=== PATIENT | female | born 1985 | race Caucasian/White ===

== ENCOUNTER 2016-11-11 05:29 | Inpatient (IN) | payer OTHER ==
[~2016-11-11] VITALS: Ht 160 cm; Wt 62.1 kg
[2016-11-11 06:36] LABS: HEMOGLOBIN 13.1 gm/dl (12.3-15.3); RED BLOOD COUNT 4.11 M/UL (4.00-5.10); WHITE BLOOD COUNT 8.4 K/UL (4.5-11.0)
[2016-11-12 03:30] LABS: HEMOGLOBIN 13.3 gm/dl (12.3-15.3)
== END 2016-11-13 12:34 | disposition home or self-care (01) | DRG 774 ==
LOC: OB 05:29
PROVIDERS: ADMIT Obstetrics & Gynecology
PROC: 10E0XZZ Delivery of Products of Conception, External Approach (ICD-10-PCS; principal; 2016-11-11)
PROC: 3E033VJ Introduction of Other Hormone into Peripheral Vein, Percutaneous Approach (ICD-10-PCS; 2016-11-11)
PROC: 10907ZC Drainage of Amniotic Fluid, Therapeutic from Products of Conception, Via Natural or Artificial Opening (ICD-10-PCS; 2016-11-11)
PROC: 3E0R3CZ (ICD-10-PCS; 2016-11-11)
PROC: 3E0234Z Introduction of Serum, Toxoid and Vaccine into Muscle, Percutaneous Approach (ICD-10-PCS; 2016-11-13)
DX: O26.813 Pregnancy related exhaustion and fatigue, third trimester (principal); O75.3 Other infection during labor; N39.0 Urinary tract infection, site not specified; Z3A.39 39 weeks gestation of pregnancy; Z37.0 Single live birth; Z23 Encounter for immunization; Z88.0 Allergy status to penicillin
CPT/HCPCS: 36415; 51702; 81001; 82800; 85014; 85018; 85025; 87086; 90715; J2405; J2590; J2795; J3010; J7120